=== PATIENT | male | born 1975 | race Caucasian/White ===

== ENCOUNTER 2016-09-05 09:11 | Inpatient (IN) | payer BC ==
[~2016-09-05] VITALS: Ht 182.9 cm; Wt 123.1 kg
[2016-09-05 10:06] LABS: EOSINOPHIL (%) 1.6 % (0-5); EOSINOPHIL COUNT 0.1 K/uL (0-0.3); HEMATOCRIT 43.6 % (38.0-50.0); IMMATURE GRANULOCYTE (%) 0.3 % (0.0-0.7); INSTRUMENT ABS NEUTROPHIL CT 2.5 K/uL; LYMPHOCYTE COUNT 0.8 K/uL (1.0-2.8); MCH 34.2 PG (29.0-34.0); MCHC 35.3 G/DL (30.0-36.0); MCV 96.9 FL (86-99); MEAN PLAT.VOLUME 10.1 uM^3 (9.0-12.4); MONOCYTE (%) 10.7 % (3-12); MONOCYTE COUNT 0.4 K/uL (0-0.8); NEUTROPHIL (%) 65.1 % (45-76); NEUTROPHIL COUNT 2.5 K/uL (1.8-6.4); PLATELET COUNT 156 K/uL (156-360); RBC DIS.WIDTH-CV 13.6 % (11.8-14.6); RBC DIS.WIDTH-SD 48.7 % (39-53); WHITE BLOOD COUNT 3.8 K/uL (4.1-10.2)
[2016-09-05 10:15] LABS: CHLORIDE 102 mEq/L (99-109); SODIUM 137 mEq/L (136-147)
[2016-09-05 10:17] LABS: GLUCOSE 137 mg/dL (70-99)
[2016-09-05 10:18] LABS: ANION GAP 15 MEQ/L (2-14)
[2016-09-05 10:19] LABS: TOTAL BILIRUBIN 0.8 mg/dL (0.0-1.0)
[2016-09-05 10:20] LABS: ALKALINE PHOSPHATASE 126 IU/L (3-129)
[2016-09-05 10:22] LABS: UREA NITROGEN (BUN) 6 mg/dL (9-23)
[2016-09-05 10:24] LABS: LIPASE 1048 U/L (1.0-51.0)
[2016-09-05 10:27] LABS: GFR ESTIMATE (CALCULATED) > 59 mL/min/
[2016-09-05] MEDS ORDERED: ALPRAZOLAM0.25 M2 PO (14:23)
[2016-09-05] MEDS ORDERED: PRISTIQ50 MG PO (14:24)
[2016-09-05] MEDS ORDERED: MAGNESIUM250 MG PO (14:29)
[2016-09-05] MEDS ORDERED: ZINC SULFATE220 MG PO (14:29)
[2016-09-05] MEDS ORDERED: COMBIGAN O20 DROP/5 RIGHT EYE (14:35)
[2016-09-05] MEDS ORDERED: LATANOPROST2.5 ML RIGHT EYE (14:35)
[2016-09-05 16:36] LABS: MAGNESIUM 1.8 mg/dL (1.3-2.7)
[2016-09-06] VITALS (15 sets, daily range): BP systolic 74–117; BP diastolic 42–81
[2016-09-06 09:50] LABS: HBSG INDEX 0.19
[2016-09-06 09:51] LABS: ANTI-HEPATITIS A VIRUS (IGM) Nonreactive; HAV INDEX 0.15
[2016-09-06 09:52] LABS: ANTI-HEPATITIS B CORE (IGM) Nonreactive; HBC IgM INDEX 0.07
[2016-09-06 12:02] LABS: ALKALINE PHOSPHATASE 121 IU/L (3-129); AMYLASE 162 IU/L (1-118); ANION GAP 19 MEQ/L (2-14); CHLORIDE 99 MEQ/L (99-109); FERRITIN > 1500 NG/ML (22-322); GAMMA-GT 1659 IU/L (4-73); GLUCOSE 158 mg/dL (70-99); HDL CHOLESTEROL 20 MG/DL (Desirable>=40); IRON 32 MCG/DL (35-150); LIPASE 2095 U/L (1.0-51.0); NON-HDL CHOLESTEROL 298 mg/dL (Desirable<160); POTASSIUM 4.8 MEQ/L (3.7-5.4); SAMPLE HEMOLYSIS CHECK 0; SAMPLE ICTERIC CHECK 0; SAMPLE LIPEMIA CHECK 0; SODIUM 136 MEQ/L (136-147); TOTAL BILIRUBIN 1.6 MG/DL (0.0-1.0); TOTAL CHOLESTEROL 318 mg/dL (Desirable<200); TRIGLYCERIDES 565 MG/DL (Normal: <150); UREA NITROGEN (BUN) 10 mg/dL (9-23)
[2016-09-06 12:04] LABS: GFR ESTIMATE (CALCULATED) 26 mL/min/
[2016-09-06 13:44] LABS: TROP-I INTERPRETATION NEGATIVE; TROPONIN-I 0.02 ng/mL (0.0-0.30)
[2016-09-06 15:43] LABS: HEMATOCRIT 48.4 % (38.0-50.0); MCHC 34.7 G/DL (30.0-36.0); PLATELET COUNT 127 K/uL (156-360); RBC DIS.WIDTH-CV 14.8 % (11.8-14.6); RBC DIS.WIDTH-SD 57.3 % (39-53); RED BLOOD COUNT 4.67 M/uL (4.00-5.50)
[2016-09-06 15:51] LABS: MCV 103.6 FL (86-99); WHITE BLOOD COUNT 14.5 K/uL (4.1-10.2)
[2016-09-06 15:59] LABS: ANION GAP 21 MEQ/L (2-14); CHLORIDE 100 MEQ/L (99-109); DIRECT BILIRUBIN 0.3 mg/dL (0.0-0.3); POTASSIUM 4.7 MEQ/L (3.7-5.4); SAMPLE HEMOLYSIS CHECK 1; SAMPLE ICTERIC CHECK 0; SAMPLE LIPEMIA CHECK 0; SODIUM 131 MEQ/L (136-147); TOTAL BILIRUBIN 1.6 MG/DL (0.0-1.0); UREA NITROGEN (BUN) 18 mg/dL (9-23)
[2016-09-06 16:00] LABS: ALKALINE PHOSPHATASE 78 IU/L (3-129); GFR ESTIMATE (CALCULATED) 15 mL/min/; GLUCOSE 267 mg/dL (70-99)
[2016-09-06 16:04] LABS: LIPASE 2036 U/L (1.0-51.0)
[2016-09-06 16:52] LABS: CARBOXY HGB 2.3 % (0-5); METHEMOGLOBIN 1.6 % (0-1.5); PCO2 < 19 mm Hg (35-45); PO2 76 mm Hg (80-100)
[2016-09-06 16:53] LABS: COMMENTS - BLOOD GASES A+C+; FI02 21 %; SITE LR; pH 7.25 (7.35-7.45)
[2016-09-06 17:16] LABS: METH RESISTANT S AUREUS PCR NEGATIVE (NEGATIVE); PROBE CHECK PASS; SPECIMEN PROCESSING CONTROL PASS
[2016-09-06 18:24] LABS: POINT-OF-CARE METER ID UU13113803
[2016-09-06 21:48] LABS: ANION GAP 21 MEQ/L (2-14); CHLORIDE 100 MEQ/L (99-109); GFR ESTIMATE (CALCULATED) 15 mL/min/; GLUCOSE 213 mg/dL (70-99); POTASSIUM 5.2 MEQ/L (3.7-5.4); SAMPLE HEMOLYSIS CHECK 2; SAMPLE ICTERIC CHECK 0; SAMPLE LIPEMIA CHECK 0; SODIUM 131 MEQ/L (136-147); UREA NITROGEN (BUN) 21 mg/dL (9-23)
[2016-09-07] VITALS (12 sets, daily range): BP systolic 68–139; BP diastolic 46–80
[2016-09-07 02:04] LABS: ADD MIUA? YES; BILIRUBIN NEGATIVE; BLOOD LARGE; COLOR AMBER ((YELLOW)); GLUCOSE (STRIP) 50; KETONES NEGATIVE; LEUKOCYTES NEGATIVE; NITRITE NEGATIVE; PROTEIN (STRIP) 100; SPECIFIC GRAVITY 1.027 (1.000-1.030); UROBILINOGEN 0.2 MG/DL (0.2-1.0)
[2016-09-07 02:14] LABS: BACTERIA RARE /HPF; EPITHELIAL CELLS NONE SEEN /HPF; GRANULAR CASTS 0-5 /LPF; MUCUS TRACE /LPF; UCUL ADDED? NO; WHITE BLOOD CELLS 0-5 /HPF (0-5)
[2016-09-07 06:00] LABS: BASE EXCESS -2.7 mEq/L (-3 to +3); BICARBONATE 20.4 mEq/L (22-26); CARBOXY HGB 1.8 % (0-5); COMMENTS - BLOOD GASES C+; DEVICE 980; FI02 100 %; MECHANICAL RATE 14 resp/min; METHEMOGLOBIN 1.8 % (0-1.5); MODE AC; PCO2 30 mm Hg (35-45); PEEP 5 CM/H20; PO2 305 mm Hg (80-100); SITE A LINE; TIDAL VOLUME 500 ML; TOTAL RESP RATE 14 resp/min; pH 7.44 (7.35-7.45)
[2016-09-07 08:05] LABS: HEMATOCRIT 37.3 % (38.0-50.0); MCH 34.1 PG (29.0-34.0); MCV 100.3 FL (86-99); PLATELET COUNT 113 K/uL (156-360); RBC DIS.WIDTH-SD 51.8 % (39-53); RED BLOOD COUNT 3.72 M/uL (4.00-5.50); WHITE BLOOD COUNT 10.7 K/uL (4.1-10.2)
[2016-09-07 08:37] LABS: ANION GAP 19 MEQ/L (2-14); CHLORIDE 96 MEQ/L (99-109); DIRECT BILIRUBIN 0.7 mg/dL (0.0-0.3); GFR ESTIMATE (CALCULATED) 14 mL/min/; GLUCOSE 263 mg/dL (70-99); LIPASE 694 U/L (1.0-51.0); POTASSIUM 4.3 MEQ/L (3.7-5.4); SAMPLE HEMOLYSIS CHECK 0; SAMPLE ICTERIC CHECK 0; SAMPLE LIPEMIA CHECK 0; SODIUM 134 MEQ/L (136-147); TOTAL BILIRUBIN 1.5 MG/DL (0.0-1.0); UREA NITROGEN (BUN) 26 mg/dL (9-23)
[2016-09-07 08:44] LABS: ALKALINE PHOSPHATASE 46 IU/L (3-129); MAGNESIUM 1.4 mg/dl (1.3-2.7)
[2016-09-07 09:23] LABS: INTER. NORMALIZED RATIO 1.2; PTT 35.9 (25-32)
[2016-09-07 09:52] LABS: ABS NEUTROPHIL COUNT 7.3; ANISOCYTOSIS 3+; EOSINOPHIL ABS CT 0; INSTRUMENT ABS NEUTROPHIL CT 8.1 K/uL; LYMPHOCYTES 6.2 % (15.0-45.0); MACROCYTES 3+; METAMYELOCYTES 10.6 %; MYELOCYTES 0.9 %; PLAT.SUFFICIENCY DECREASED; SEG.NEUTROPHILS 30.1 % (46.0-76.0); SPHEROCYTES 1+; STOMATOCYTES 1+; TARGET CELLS 1+
[2016-09-07 09:59] LABS: CREATINE KINASE 1198 IU/L (1-294)
[2016-09-07 10:14] LABS: UR CREATININE CONCENTRATION 236.9 MG/DL
[2016-09-07 12:19] LABS: PLATELET COUNT 113 K/uL (156-360)
[2016-09-07 12:36] LABS: CHLORIDE 100 mEq/L (99-109); POTASSIUM 4.3 mEq/L (3.7-5.4); SODIUM 134 mEq/L (136-147)
[2016-09-07 12:38] LABS: GLUCOSE 229 mg/dL (70-99)
[2016-09-07 12:39] LABS: ANION GAP 17 MEQ/L (2-14); MAGNESIUM 1.3 mg/dL (1.3-2.7)
[2016-09-07 12:42] LABS: GFR ESTIMATE (CALCULATED) 13 mL/min/
[2016-09-07 12:43] LABS: UREA NITROGEN (BUN) 27 mg/dL (9-23)
[2016-09-07 12:46] LABS: HEMATOCRIT 38.2 % (38.0-50.0); MCH 34.8 PG (29.0-34.0); MCHC 34.8 G/DL (30.0-36.0); RBC DIS.WIDTH-CV 14.1 % (11.8-14.6); RBC DIS.WIDTH-SD 51.8 % (39-53); RED BLOOD COUNT 3.82 M/uL (4.00-5.50); WHITE BLOOD COUNT 11.4 K/uL (4.1-10.2)
[2016-09-07 13:20] LABS: ABS NEUTROPHIL COUNT 10.3; ANISOCYTOSIS 2+; BAND NEUTROPHILS 41.4 % (0-8.0); EOSINOPHIL ABS CT 0; LYMPHOCYTES 4.5 % (15.0-45.0); MACROCYTES 2+; MYELOCYTES 2.7 %; PLAT.SUFFICIENCY DECREASED; SEG.NEUTROPHILS 48.7 % (46.0-76.0); SMUDGE CELLS 36.9
[2016-09-07 18:37] LABS: CHLORIDE 105 mEq/L (99-109); POTASSIUM 4.1 mEq/L (3.7-5.4); SODIUM 136 mEq/L (136-147)
[2016-09-07 18:39] LABS: GLUCOSE 153 mg/dL (70-99)
[2016-09-07 18:41] LABS: ANION GAP 15 MEQ/L (2-14)
[2016-09-07 18:43] LABS: GFR ESTIMATE (CALCULATED) 15 mL/min/
[2016-09-07 18:44] LABS: UREA NITROGEN (BUN) 22 mg/dL (9-23)
[2016-09-07 18:49] LABS: MAGNESIUM 2.3 mg/dL (1.3-2.7)
[2016-09-07 20:07] LABS: ABS NEUTROPHIL COUNT 6.6; ANISOCYTOSIS 2+; BAND NEUTROPHILS 37.3 % (0-8.0); BURR CELLS 2+; EOSINOPHIL ABS CT 0.1; EOSINOPHILS 0.9 % (0-5.0); HEMATOCRIT 34.3 % (38.0-50.0); INSTRUMENT ABS NEUTROPHIL CT 8.2 K/uL; LYMPHOCYTES 11.8 % (15.0-45.0); MACROCYTES 2+; MCH 35.2 PG (29.0-34.0); MCHC 35.9 G/DL (30.0-36.0); MCV 98.3 FL (86-99); MEAN PLAT.VOLUME 11.8 uM^3 (9.0-12.4); PLATELET COUNT 112 K/uL (156-360); RBC DIS.WIDTH-CV 14.2 % (11.8-14.6); RBC DIS.WIDTH-SD 51.6 % (39-53); RED BLOOD COUNT 3.49 M/uL (4.00-5.50); TARGET CELLS 1+
[2016-09-07 21:11] LABS: SEG.NEUTROPHILS 28.2 % (46.0-76.0)
[2016-09-07 23:46] LABS: POINT-OF-CARE METER ID UU13113803; POINT-OF-CARE USER ID LABHNS84
[2016-09-08 00:47] LABS: C DIFF TOXIN NEGATIVE (NEGATIVE)
[2016-09-08 01:07] LABS: PROBE CHECK PASS; SPECIMEN PROCESSING CONTROL PASS
[2016-09-08 01:07] LABS: CHLORIDE 107 mEq/L (99-109); SODIUM 139 mEq/L (136-147)
[2016-09-08 01:09] LABS: GLUCOSE 137 mg/dL (70-99)
[2016-09-08 01:11] LABS: ANION GAP 15 MEQ/L (2-14)
[2016-09-08 01:13] LABS: GFR ESTIMATE (CALCULATED) 20 mL/min/
[2016-09-08 01:14] LABS: UREA NITROGEN (BUN) 20 mg/dL (9-23)
[2016-09-08 02:16] LABS: ABS NEUTROPHIL COUNT 5.5; ANISOCYTOSIS 2+; EOSINOPHIL ABS CT 0.1; EOSINOPHILS 0.9 % (0-5.0); HEMATOCRIT 33.1 % (38.0-50.0); INSTRUMENT ABS NEUTROPHIL CT 7.2 K/uL; LYMPHOCYTES 11.9 % (15.0-45.0); MACROCYTES 2+; MCH 34.8 PG (29.0-34.0); MCV 99.4 FL (86-99); MEAN PLAT.VOLUME 11.9 uM^3 (9.0-12.4); METAMYELOCYTES 0.9 %; MYELOCYTES 2.8 %; PLAT.SUFFICIENCY DECREASED; PLATELET COUNT 82 K/uL (156-360); RBC DIS.WIDTH-CV 14.2 % (11.8-14.6); RBC DIS.WIDTH-SD 51.8 % (39-53); RED BLOOD COUNT 3.33 M/uL (4.00-5.50); WHITE BLOOD COUNT 8.4 K/uL (4.1-10.2)
[2016-09-08 05:35] LABS: POINT-OF-CARE METER ID UU14162636; POINT-OF-CARE USER ID LABHNS84
[2016-09-08 10:19] LABS: HEMATOCRIT 31.6 % (38.0-50.0); MCH 35.9 PG (29.0-34.0); MCHC 35.4 G/DL (30.0-36.0); MCV 101.3 FL (86-99); MEAN PLAT.VOLUME 12.4 uM^3 (9.0-12.4); PLATELET COUNT 88 K/uL (156-360); RBC DIS.WIDTH-CV 14.6 % (11.8-14.6); RBC DIS.WIDTH-SD 54.7 % (39-53); RED BLOOD COUNT 3.12 M/uL (4.00-5.50); WHITE BLOOD COUNT 8.5 K/uL (4.1-10.2)
[2016-09-08 10:41] LABS: ANION GAP 16 MEQ/L (2-14); CHLORIDE 105 MEQ/L (99-109); GFR ESTIMATE (CALCULATED) 24 mL/min/; GLUCOSE 116 mg/dL (70-99); POTASSIUM 4.3 MEQ/L (3.7-5.4); SAMPLE HEMOLYSIS CHECK 2; SAMPLE ICTERIC CHECK 0; SAMPLE LIPEMIA CHECK 0; SODIUM 137 MEQ/L (136-147); UREA NITROGEN (BUN) 17 mg/dL (9-23)
[2016-09-08 10:57] LABS: ABS NEUTROPHIL COUNT 7.2; ANISOCYTOSIS 2+; BAND NEUTROPHILS 35.7 % (0-8.0); EOSINOPHIL ABS CT 0.2; EOSINOPHILS 1.8 % (0-5.0); HEMATOLOGY COMMENT 1 SN; INSTRUMENT ABS NEUTROPHIL CT 7.2 K/uL; LYMPHOCYTES 5.3 % (15.0-45.0); MACROCYTES 2+; METAMYELOCYTES 2.7 %; PLAT.SUFFICIENCY DECREASED; POIKILOCYTOSIS 1+; SEG.NEUTROPHILS 49.1 % (46.0-76.0); SPHEROCYTES 1+; TARGET CELLS 1+; TEAR DROP CELLS 1+; TOX.VACUOLIZATION 2+
[2016-09-08 11:00] VITALS: BP 87/54
[2016-09-08 14:05] LABS: HEMATOCRIT 32.7 % (38.0-50.0); MCH 35.3 PG (29.0-34.0); MCHC 34.6 G/DL (30.0-36.0); MCV 102.2 FL (86-99); PLATELET COUNT 82 K/uL (156-360); RBC DIS.WIDTH-CV 14.7 % (11.8-14.6); RBC DIS.WIDTH-SD 55.2 % (39-53); WHITE BLOOD COUNT 8.2 K/uL (4.1-10.2)
[2016-09-08 14:12] LABS: ABS NEUTROPHIL COUNT 6.9; ANISOCYTOSIS 3+; ATYPICAL LYMPHOCYTE 0.9 %; BAND NEUTROPHILS 29.8 % (0-8.0); BASOPHILS 0.9 %; EOSINOPHIL ABS CT 0; INSTRUMENT ABS NEUTROPHIL CT 6.7 K/uL; MACROCYTES 3+; METAMYELOCYTES 3.5 %; NUCLEATED RBC'S 0.9; PLAT.SUFFICIENCY DECREASED; POIKILOCYTOSIS 1+; SEG.NEUTROPHILS 54.4 % (46.0-76.0); TARGET CELLS 1+
[2016-09-08 14:14] LABS: ANION GAP 17 MEQ/L (2-14); CHLORIDE 104 MEQ/L (99-109); GFR ESTIMATE (CALCULATED) 26 mL/min/; GLUCOSE 111 mg/dL (70-99); MAGNESIUM 2.1 mg/dl (1.3-2.7); POTASSIUM 4.4 MEQ/L (3.7-5.4); SAMPLE HEMOLYSIS CHECK 1; SAMPLE ICTERIC CHECK 0; SAMPLE LIPEMIA CHECK 0; SODIUM 137 MEQ/L (136-147); UREA NITROGEN (BUN) 16 mg/dL (9-23)
[2016-09-08 17:50] LABS: POINT-OF-CARE METER ID UU14174217
[2016-09-08 18:54] LABS: HEMATOCRIT 31.5 % (38.0-50.0); MCH 35.3 PG (29.0-34.0); MCHC 34.6 G/DL (30.0-36.0); MCV 101.9 FL (86-99); NRBC (%) 0.3 /100 WBC (0-0); PLATELET COUNT 94 K/uL (156-360); RBC DIS.WIDTH-CV 14.9 % (11.8-14.6); RBC DIS.WIDTH-SD 55.7 % (39-53); RED BLOOD COUNT 3.09 M/uL (4.00-5.50); WHITE BLOOD COUNT 7.5 K/uL (4.1-10.2)
[2016-09-08 18:59] LABS: CHLORIDE 106 mEq/L (99-109); POTASSIUM 4.6 mEq/L (3.7-5.4); SODIUM 137 mEq/L (136-147)
[2016-09-08 19:00] LABS: MAGNESIUM 2.3 mg/dL (1.3-2.7)
[2016-09-08 19:02] LABS: GLUCOSE 122 mg/dL (70-99)
[2016-09-08 19:03] LABS: ANION GAP 17 MEQ/L (2-14)
[2016-09-08 19:05] LABS: GFR ESTIMATE (CALCULATED) 28 mL/min/
[2016-09-08 19:06] LABS: UREA NITROGEN (BUN) 14 mg/dL (9-23)
[2016-09-08 20:04] LABS: ABS NEUTROPHIL COUNT 5.4; ANISOCYTOSIS 3+; BAND NEUTROPHILS 21.9 % (0-8.0); EOSINOPHIL ABS CT 0; HYPOCHROMASIA 1+; INSTRUMENT ABS NEUTROPHIL CT 5.7 K/uL; MACROCYTES 3+; MYELOCYTES 4.4 %; PLAT.SUFFICIENCY DECREASED; POLYCHROMASIA 1+; TARGET CELLS 1+; TEAR DROP CELLS 1+; TOX.VACUOLIZATION 1+
[2016-09-09 01:40] LABS: POINT-OF-CARE METER ID UU13113803; POINT-OF-CARE USER ID ENVSME70
[2016-09-09 01:50] LABS: HEMATOCRIT 29.9 % (38.0-50.0); MCH 34.1 PG (29.0-34.0); MCHC 33.4 G/DL (30.0-36.0); MEAN PLAT.VOLUME 12.2 uM^3 (9.0-12.4); NRBC (%) 0.5 /100 WBC (0-0); PLATELET COUNT 86 K/uL (156-360); RBC DIS.WIDTH-CV 14.6 % (11.8-14.6); RBC DIS.WIDTH-SD 55.4 % (39-53); RED BLOOD COUNT 2.93 M/uL (4.00-5.50); WHITE BLOOD COUNT 7.3 K/uL (4.1-10.2)
[2016-09-09 01:58] LABS: CHLORIDE 104 mEq/L (99-109)
[2016-09-09 01:59] LABS: SODIUM 135 mEq/L (136-147)
[2016-09-09 02:01] LABS: GLUCOSE 151 mg/dL (70-99)
[2016-09-09 02:02] LABS: ANION GAP 14 MEQ/L (2-14)
[2016-09-09 02:05] LABS: GFR ESTIMATE (CALCULATED) 31 mL/min/
[2016-09-09 02:06] LABS: UREA NITROGEN (BUN) 14 mg/dL (9-23)
[2016-09-09 02:57] LABS: ABS NEUTROPHIL COUNT 5.2; ANISOCYTOSIS 3+; ATYPICAL LYMPHOCYTE 0.9 %; BAND NEUTROPHILS 20.2 % (0-8.0); EOSINOPHIL ABS CT 0.2; EOSINOPHILS 2.6 % (0-5.0); HYPOCHROMASIA 1+; LYMPHOCYTES 10.5 % (15.0-45.0); MACROCYTES 3+; METAMYELOCYTES 1.8 %; MYELOCYTES 1.7 %; NUCLEATED RBC'S 3.5; PLAT.SUFFICIENCY DECREASED; POLYCHROMASIA 1+; SEG.NEUTROPHILS 50.9 % (46.0-76.0); TEAR DROP CELLS 1+; TOX.VACUOLIZATION 1+
[2016-09-09 05:08] LABS: CHLORIDE 105 mEq/L (99-109); POTASSIUM 4.2 mEq/L (3.7-5.4); SODIUM 135 mEq/L (136-147)
[2016-09-09 05:09] LABS: MAGNESIUM 2.1 mg/dL (1.3-2.7)
[2016-09-09 05:11] LABS: GLUCOSE 144 mg/dL (70-99)
[2016-09-09 05:12] LABS: ANION GAP 13 MEQ/L (2-14)
[2016-09-09 05:15] LABS: ALKALINE PHOSPHATASE 50 IU/L (3-129); GFR ESTIMATE (CALCULATED) 32 mL/min/; TOTAL BILIRUBIN 2.1 mg/dL (0.0-1.0)
[2016-09-09 05:16] LABS: DIRECT BILIRUBIN 1.3 mg/dL (0.0-0.3); UREA NITROGEN (BUN) 14 mg/dL (9-23)
[2016-09-09 05:49] LABS: TRIGLYCERIDES 614 MG/DL (Normal: <150)
[2016-09-09 06:38] LABS: HEMATOCRIT 28.6 % (38.0-50.0); MCHC 34.6 G/DL (30.0-36.0); MCV 101.1 FL (86-99); NRBC (%) 0.7 /100 WBC (0-0); RBC DIS.WIDTH-CV 14.7 % (11.8-14.6); RBC DIS.WIDTH-SD 55.1 % (39-53); RED BLOOD COUNT 2.83 M/uL (4.00-5.50); WHITE BLOOD COUNT 7.3 K/uL (4.1-10.2)
[2016-09-09 06:46] LABS: ATYPICAL LYMPHOCYTE 0.9 %; EOSINOPHIL ABS CT 0.3; EOSINOPHILS 4.3 % (0-5.0); INSTRUMENT ABS NEUTROPHIL CT 5.2 K/uL; LYMPHOCYTES 9.5 % (15.0-45.0); METAMYELOCYTES 1.7 %; NUCLEATED RBC'S 0.9
[2016-09-09 09:00] VITALS: BP 109/68
[2016-09-09 11:58] LABS: POINT-OF-CARE METER ID UU13113803
[2016-09-09 12:55] LABS: HEMATOCRIT 28.8 % (38.0-50.0); MCH 35.7 PG (29.0-34.0); MCHC 34.7 G/DL (30.0-36.0); MCV 102.9 FL (86-99); MEAN PLAT.VOLUME 12.4 uM^3 (9.0-12.4); NRBC (%) 1.5 /100 WBC (0-0); PLATELET COUNT 88 K/uL (156-360); RBC DIS.WIDTH-CV 14.8 % (11.8-14.6); RBC DIS.WIDTH-SD 55.7 % (39-53); WHITE BLOOD COUNT 9.9 K/uL (4.1-10.2)
[2016-09-09 13:22] LABS: ABS NEUTROPHIL COUNT 7.1; ANISOCYTOSIS 3+; BURR CELLS 1+; EOSINOPHIL ABS CT 0.1; EOSINOPHILS 0.9 % (0-5.0); HEMATOLOGY COMMENT 1 SN; INSTRUMENT ABS NEUTROPHIL CT 6.8 K/uL; LYMPHOCYTES 6.1 % (15.0-45.0); MACROCYTES 2+; METAMYELOCYTES 5.2 %; MYELOCYTES 2.6 %; NUCLEATED RBC'S 3.5; PLAT.SUFFICIENCY DECREASED; POIKILOCYTOSIS 1+; POLYCHROMASIA 1+; TARGET CELLS 1+
[2016-09-09 13:24] LABS: BAND NEUTROPHILS 45.2 % (0-8.0); SEG.NEUTROPHILS 26.1 % (46.0-76.0)
[2016-09-09 14:18] LABS: CHLORIDE 103 mEq/L (99-109); POTASSIUM 4.1 mEq/L (3.7-5.4); SODIUM 134 mEq/L (136-147)
[2016-09-09 14:19] LABS: AMYLASE 47 IU/L (1-118)
[2016-09-09 14:20] LABS: GLUCOSE 129 mg/dL (70-99)
[2016-09-09 14:22] LABS: ANION GAP 14 MEQ/L (2-14)
[2016-09-09 14:23] LABS: TOTAL BILIRUBIN 2.6 mg/dL (0.0-1.0)
[2016-09-09 14:24] LABS: ALKALINE PHOSPHATASE 58 IU/L (3-129); GFR ESTIMATE (CALCULATED) 32 mL/min/
[2016-09-09 14:25] LABS: UREA NITROGEN (BUN) 13 mg/dL (9-23)
[2016-09-09 14:28] LABS: LIPASE 180 U/L (1.0-51.0)
[2016-09-09 18:05] LABS: POINT-OF-CARE METER ID UU14174217
[2016-09-09 18:40] LABS: HEMATOCRIT 24.5 % (38.0-50.0); MCH 34.6 PG (29.0-34.0); MCHC 33.9 G/DL (30.0-36.0); MCV 102.1 FL (86-99); MEAN PLAT.VOLUME 11.7 uM^3 (9.0-12.4); NRBC (%) 2.6 /100 WBC (0-0); PLATELET COUNT 79 K/uL (156-360); RBC DIS.WIDTH-CV 14.8 % (11.8-14.6); RBC DIS.WIDTH-SD 55.2 % (39-53); WHITE BLOOD COUNT 9.6 K/uL (4.1-10.2)
[2016-09-09 18:43] LABS: CHLORIDE 103 mEq/L (99-109); POTASSIUM 3.6 mEq/L (3.7-5.4); SODIUM 134 mEq/L (136-147)
[2016-09-09 18:44] LABS: MAGNESIUM 2.2 mg/dL (1.3-2.7)
[2016-09-09 18:45] LABS: GLUCOSE 126 mg/dL (70-99)
[2016-09-09 18:47] LABS: ANION GAP 12 MEQ/L (2-14)
[2016-09-09 18:49] LABS: GFR ESTIMATE (CALCULATED) 28 mL/min/
[2016-09-09 18:50] LABS: UREA NITROGEN (BUN) 14 mg/dL (9-23)
[2016-09-09 19:41] LABS: ABS NEUTROPHIL COUNT 7.2; ANISOCYTOSIS 3+; EOSINOPHIL ABS CT 0; GIANT PLATELETS 1+; INSTRUMENT ABS NEUTROPHIL CT 6.1 K/uL; LYMPHOCYTES 6.2 % (15.0-45.0); MACROCYTES 3+; MYELOCYTES 4.5 %; NUCLEATED RBC'S 4.5; PLAT.SUFFICIENCY DECREASED; SMUDGE CELLS 1.8; TOX.VACUOLIZATION 1+; TOXIC GRANULATION 2+
[2016-09-09 19:43] LABS: BAND NEUTROPHILS 12.5 % (0-8.0); SEG.NEUTROPHILS 62.5 % (46.0-76.0)
[2016-09-10 00:04] LABS: POINT-OF-CARE METER ID UU14174217; POINT-OF-CARE USER ID LABHNS84
[2016-09-10 02:25] LABS: CHLORIDE 104 MEQ/L (99-109); GFR ESTIMATE (CALCULATED) 31 mL/min/; GLUCOSE 122 mg/dL (70-99); MAGNESIUM 2.3 mg/dl (1.3-2.7); POTASSIUM 4.3 MEQ/L (3.7-5.4); SODIUM 134 MEQ/L (136-147); UREA NITROGEN (BUN) 14 mg/dL (9-23)
[2016-09-10 02:27] LABS: HEMATOCRIT 26.3 % (38.0-50.0); MCH 34.7 PG (29.0-34.0); MCHC 33.1 G/DL (30.0-36.0); MCV 104.8 FL (86-99); NRBC (%) 2.7 /100 WBC (0-0); RBC DIS.WIDTH-CV 15.5 % (11.8-14.6); RBC DIS.WIDTH-SD 58.7 % (39-53); RED BLOOD COUNT 2.51 M/uL (4.00-5.50); WHITE BLOOD COUNT 11.1 K/uL (4.1-10.2)
[2016-09-10 02:28] LABS: PLATELET COUNT 110 K/uL (156-360)
[2016-09-10 05:52] LABS: BICARBONATE 21.3 mEq/L (22-26); METHEMOGLOBIN 1.8 % (0-1.5)
[2016-09-10 05:53] LABS: MECHANICAL RATE 12 resp/min; MODE ACVC; PCO2 57 mm Hg (35-45); PEEP 8 CM/H20; PO2 72 mm Hg (80-100); TIDAL VOLUME 500 ML; TOTAL RESP RATE 12 resp/min; pH 7.18 (7.35-7.45)
[2016-09-10 05:54] LABS: DEVICE PB980; FI02 40 %; SITE A-LINE
[2016-09-10 06:12] LABS: HEMATOCRIT 26.6 % (38.0-50.0); MCH 35.6 PG (29.0-34.0); MCHC 33.5 G/DL (30.0-36.0); MCV 106.4 FL (86-99); NRBC (%) 3.3 /100 WBC (0-0); RBC DIS.WIDTH-CV 15.5 % (11.8-14.6); RBC DIS.WIDTH-SD 59.6 % (39-53); WHITE BLOOD COUNT 11.7 K/uL (4.1-10.2)
[2016-09-10 06:45] LABS: ANION GAP 10 MEQ/L (2-14); CHLORIDE 102 MEQ/L (99-109); GFR ESTIMATE (CALCULATED) 32 mL/min/; GLUCOSE 111 mg/dL (70-99); MAGNESIUM 2.2 mg/dl (1.3-2.7); POTASSIUM 4.2 MEQ/L (3.7-5.4); SAMPLE HEMOLYSIS CHECK 0; SAMPLE ICTERIC CHECK 1; SAMPLE LIPEMIA CHECK 0; SODIUM 134 MEQ/L (136-147); UREA NITROGEN (BUN) 13 mg/dL (9-23)
[2016-09-10 07:13] LABS: ABS NEUTROPHIL COUNT 8.4; ANISOCYTOSIS 3+; BAND NEUTROPHILS 10.7 % (0-8.0); EOSINOPHIL ABS CT 0.3; EOSINOPHILS 2.7 % (0-5.0); INSTRUMENT ABS NEUTROPHIL CT 6.8 K/uL; MACROCYTES 3+; MEAN PLAT.VOLUME 12.3 uM^3 (9.0-12.4); METAMYELOCYTES 3.6 %; MYELOCYTES 3.6 %; NUCLEATED RBC'S 5.4; PLAT.SUFFICIENCY DECREASED; POLYCHROMASIA 1+; SEG.NEUTROPHILS 60.7 % (46.0-76.0); TOX.VACUOLIZATION 2+
[2016-09-10 08:48] LABS: BASE EXCESS -5.1 mEq/L (-3 to +3); BICARBONATE 21.5 mEq/L (22-26); CARBOXY HGB 4.2 % (0-5); METHEMOGLOBIN 2.1 % (0-1.5); PCO2 48 mm Hg (35-45); PO2 62 mm Hg (80-100)
[2016-09-10 08:49] LABS: COMMENTS - BLOOD GASES C+; DEVICE VENT; FI02 40 %; MECHANICAL RATE 16 resp/min; MODE AC; PEEP 8 CM/H20; SITE LR ALINE; TIDAL VOLUME 500 ML; TOTAL RESP RATE 16 resp/min; pH 7.26 (7.35-7.45)
[2016-09-10 12:26] LABS: HEMATOCRIT 27.3 % (38.0-50.0); MCH 36.7 PG (29.0-34.0); MCHC 34.8 G/DL (30.0-36.0); MCV 105.4 FL (86-99); MEAN PLAT.VOLUME 11.9 uM^3 (9.0-12.4); NRBC (%) 4.1 /100 WBC (0-0); PLATELET COUNT 87 K/uL (156-360); RBC DIS.WIDTH-CV 15.5 % (11.8-14.6); RBC DIS.WIDTH-SD 59.5 % (39-53); RED BLOOD COUNT 2.59 M/uL (4.00-5.50)
[2016-09-10 12:27] LABS: WHITE BLOOD COUNT 16.2 K/uL (4.1-10.2)
[2016-09-10 12:41] LABS: POINT-OF-CARE METER ID UU14162636
[2016-09-10 13:04] LABS: ANION GAP 13 MEQ/L (2-14); CHLORIDE 102 MEQ/L (99-109); GFR ESTIMATE (CALCULATED) 34 mL/min/; GLUCOSE 97 mg/dL (70-99); MAGNESIUM 2.3 mg/dl (1.3-2.7); POTASSIUM 4.4 MEQ/L (3.7-5.4); SAMPLE HEMOLYSIS CHECK 1; SAMPLE ICTERIC CHECK 1; SAMPLE LIPEMIA CHECK 0; SODIUM 135 MEQ/L (136-147); UREA NITROGEN (BUN) 12 mg/dL (9-23)
[2016-09-10 13:21] LABS: ABS NEUTROPHIL COUNT 10.3; ANISOCYTOSIS 3+; ATYPICAL LYMPHOCYTE 0.9 %; EOSINOPHIL ABS CT 0.1; EOSINOPHILS 0.9 % (0-5.0); INSTRUMENT ABS NEUTROPHIL CT 10.1 K/uL; LYMPHOCYTES 5.2 % (15.0-45.0); MACROCYTES 3+; METAMYELOCYTES 7.8 %; MYELOCYTES 12.2 %; NUCLEATED RBC'S 5.2; PLAT.SUFFICIENCY DECREASED; SEG.NEUTROPHILS 50.4 % (46.0-76.0); TARGET CELLS 1+; TEAR DROP CELLS 1+
[2016-09-10 18:37] LABS: HEMATOCRIT 26.5 % (38.0-50.0); MCH 35.2 PG (29.0-34.0); MCHC 33.6 G/DL (30.0-36.0); MCV 104.7 FL (86-99); MEAN PLAT.VOLUME 12.3 uM^3 (9.0-12.4); NRBC (%) 3.8 /100 WBC (0-0); PLATELET COUNT 101 K/uL (156-360); RBC DIS.WIDTH-CV 15.4 % (11.8-14.6); RBC DIS.WIDTH-SD 58.4 % (39-53); RED BLOOD COUNT 2.53 M/uL (4.00-5.50); WHITE BLOOD COUNT 20.1 K/uL (4.1-10.2)
[2016-09-10 18:37] LABS: POINT-OF-CARE METER ID UU14162636
[2016-09-10 18:40] LABS: ANION GAP 13 MEQ/L (2-14); CHLORIDE 103 MEQ/L (99-109); GFR ESTIMATE (CALCULATED) 38 mL/min/; GLUCOSE 102 mg/dL (70-99); MAGNESIUM 2.2 mg/dl (1.3-2.7); POTASSIUM 4.3 MEQ/L (3.7-5.4); SAMPLE HEMOLYSIS CHECK 0; SAMPLE ICTERIC CHECK 1; SAMPLE LIPEMIA CHECK 0; SODIUM 135 MEQ/L (136-147); UREA NITROGEN (BUN) 12 mg/dL (9-23)
[2016-09-10 20:00] VITALS: BP 94/60
[2016-09-10 21:04] LABS: ABS NEUTROPHIL COUNT 13.1; ANISOCYTOSIS 1+; BAND NEUTROPHILS 23.5 % (0-8.0); EOSINOPHIL ABS CT 0; INSTRUMENT ABS NEUTROPHIL CT 12.5 K/uL; MACROCYTES 2+; METAMYELOCYTES 10.5 %; PLAT.SUFFICIENCY ADEQUATE; POLYCHROMASIA 1+; SEG.NEUTROPHILS 41.5 % (46.0-76.0); STOMATOCYTES 1+; TARGET CELLS 1+
[2016-09-11 00:27] LABS: POINT-OF-CARE METER ID UU13113731
[2016-09-11 00:54] LABS: HEMATOCRIT 25.4 % (38.0-50.0); MCH 34.9 PG (29.0-34.0); MCHC 33.1 G/DL (30.0-36.0); MCV 105.4 FL (86-99); MEAN PLAT.VOLUME 12.3 uM^3 (9.0-12.4); NRBC (%) 2.8 /100 WBC (0-0); PLATELET COUNT 98 K/uL (156-360); RBC DIS.WIDTH-CV 15.5 % (11.8-14.6); RBC DIS.WIDTH-SD 59.4 % (39-53); RED BLOOD COUNT 2.41 M/uL (4.00-5.50); WHITE BLOOD COUNT 20.2 K/uL (4.1-10.2)
[2016-09-11 01:04] LABS: CHLORIDE 107 mEq/L (99-109); SODIUM 135 mEq/L (136-147)
[2016-09-11 01:05] LABS: MAGNESIUM 2.1 mg/dL (1.3-2.7)
[2016-09-11 01:07] LABS: ANION GAP 10 MEQ/L (2-14)
[2016-09-11 01:10] LABS: GFR ESTIMATE (CALCULATED) 40 mL/min/
[2016-09-11 01:11] LABS: UREA NITROGEN (BUN) 13 mg/dL (9-23)
[2016-09-11 01:14] LABS: GLUCOSE 162 mg/dL (70-99)
[2016-09-11 04:00] VITALS: BP 81/31
[2016-09-11 05:00] VITALS: BP 81/31
[2016-09-11 06:09] LABS: POINT-OF-CARE METER ID UU13113731
[2016-09-11 07:57] LABS: ALKALINE PHOSPHATASE 64 IU/L (3-129); ANION GAP 13 MEQ/L (2-14); CHLORIDE 103 MEQ/L (99-109); DIRECT BILIRUBIN 2.5 mg/dL (0.0-0.3); GFR ESTIMATE (CALCULATED) 40 mL/min/; GLUCOSE 182 mg/dL (70-99); MAGNESIUM 2.2 mg/dl (1.3-2.7); POTASSIUM 3.8 MEQ/L (3.7-5.4); PREALBUMIN 4.6 mg/dL (10-40); SAMPLE HEMOLYSIS CHECK 0; SAMPLE ICTERIC CHECK 1; SAMPLE LIPEMIA CHECK 0; SODIUM 135 MEQ/L (136-147); TOTAL BILIRUBIN 3.5 MG/DL (0.0-1.0); TRIGLYCERIDES 432 MG/DL (Normal: <150); UREA NITROGEN (BUN) 18 mg/dL (9-23)
[2016-09-11 08:03] LABS: MCV 105.9 FL (86-99); MEAN PLAT.VOLUME 12.7 uM^3 (9.0-12.4); NRBC (%) 3.5 /100 WBC (0-0); PLATELET COUNT 108 K/uL (156-360); RBC DIS.WIDTH-CV 15.7 % (11.8-14.6); RBC DIS.WIDTH-SD 59.7 % (39-53); RED BLOOD COUNT 2.36 M/uL (4.00-5.50)
[2016-09-11 09:19] LABS: ABS NEUTROPHIL COUNT 16.6; ANISOCYTOSIS 1+; EOSINOPHIL ABS CT 0.5; HYPOCHROMASIA 2+; INSTRUMENT ABS NEUTROPHIL CT 14.1 K/uL; NUCLEATED RBC'S 5.5; PLAT.SUFFICIENCY DECREASED; SPHEROCYTES 1+; STOMATOCYTES 2+
[2016-09-11 12:19] LABS: BASE EXCESS -2.7 mEq/L (-3 to +3); BICARBONATE 20.6 mEq/L (22-26); PO2 64 mm Hg (80-100)
[2016-09-11 12:21] LABS: COMMENTS - BLOOD GASES A+C+; DEVICE PB980; FI02 40 %; MODE A/C; PCO2 31 mm Hg (35-45); SITE RR; pH 7.43 (7.35-7.45)
[2016-09-11 12:22] LABS: MECHANICAL RATE 16 resp/min; PEEP 5 CM/H20; TIDAL VOLUME 500 ML; TOTAL RESP RATE 16 resp/min
[2016-09-11 12:23] LABS: HEMATOCRIT 25.8 % (38.0-50.0); MCH 35.6 PG (29.0-34.0); MCHC 34.1 G/DL (30.0-36.0); MCV 104.5 FL (86-99); MEAN PLAT.VOLUME 12.8 uM^3 (9.0-12.4); NRBC (%) 3.5 /100 WBC (0-0); PLATELET COUNT 144 K/uL (156-360); RBC DIS.WIDTH-CV 15.6 % (11.8-14.6); RBC DIS.WIDTH-SD 59.5 % (39-53); RED BLOOD COUNT 2.47 M/uL (4.00-5.50); WHITE BLOOD COUNT 26.5 K/uL (4.1-10.2)
[2016-09-11 12:31] LABS: CHLORIDE 106 mEq/L (99-109); POTASSIUM 4.5 mEq/L (3.7-5.4); SODIUM 135 mEq/L (136-147)
[2016-09-11 12:33] LABS: GLUCOSE 202 mg/dL (70-99)
[2016-09-11 12:34] LABS: ANION GAP 12 MEQ/L (2-14)
[2016-09-11 12:36] LABS: GFR ESTIMATE (CALCULATED) 42 mL/min/
[2016-09-11 12:37] LABS: UREA NITROGEN (BUN) 20 mg/dL (9-23)
[2016-09-11 12:42] LABS: MAGNESIUM 2.5 mg/dL (1.3-2.7)
[2016-09-11 18:00] VITALS: BP 103/62
[2016-09-11 18:15] LABS: POINT-OF-CARE METER ID UU13113731
[2016-09-11 19:05] LABS: MEAN PLAT.VOLUME 12.7 uM^3 (9.0-12.4); PLATELET COUNT 143 K/uL (156-360)
[2016-09-11 19:08] LABS: HEMATOCRIT 26.7 % (38.0-50.0); MCH 35.2 PG (29.0-34.0); MCHC 33.7 G/DL (30.0-36.0); MCV 104.3 FL (86-99); NRBC (%) 4.2 /100 WBC (0-0); RBC DIS.WIDTH-CV 15.6 % (11.8-14.6); RBC DIS.WIDTH-SD 57.7 % (39-53); RED BLOOD COUNT 2.56 M/uL (4.00-5.50)
[2016-09-11 19:17] LABS: CHLORIDE 106 mEq/L (99-109); POTASSIUM 4.2 mEq/L (3.7-5.4); SODIUM 134 mEq/L (136-147)
[2016-09-11 19:18] LABS: GLUCOSE 255 mg/dL (70-99)
[2016-09-11 19:20] LABS: ANION GAP 11 MEQ/L (2-14)
[2016-09-11 19:22] LABS: GFR ESTIMATE (CALCULATED) 36 mL/min/
[2016-09-11 19:23] LABS: UREA NITROGEN (BUN) 24 mg/dL (9-23)
[2016-09-11 22:00] VITALS: BP 94/51
[2016-09-12 01:00] VITALS: BP 85/47
[2016-09-12 01:27] LABS: POINT-OF-CARE METER ID UU13113731
[2016-09-12 01:35] LABS: HEMATOCRIT 26.4 % (38.0-50.0); MCH 35.4 PG (29.0-34.0); MCHC 34.1 G/DL (30.0-36.0); MCV 103.9 FL (86-99); MEAN PLAT.VOLUME 12.6 uM^3 (9.0-12.4); NRBC (%) 4.7 /100 WBC (0-0); RBC DIS.WIDTH-CV 15.9 % (11.8-14.6); RBC DIS.WIDTH-SD 57.9 % (39-53); RED BLOOD COUNT 2.54 M/uL (4.00-5.50)
[2016-09-12 01:44] LABS: PLATELET COUNT 199 K/uL (156-360)
[2016-09-12 01:47] LABS: CHLORIDE 106 mEq/L (99-109); SODIUM 134 mEq/L (136-147)
[2016-09-12 01:48] LABS: MAGNESIUM 2.8 mg/dL (1.3-2.7)
[2016-09-12 01:49] LABS: GLUCOSE 305 mg/dL (70-99)
[2016-09-12 01:51] LABS: ANION GAP 13 MEQ/L (2-14)
[2016-09-12 01:53] LABS: GFR ESTIMATE (CALCULATED) 25 mL/min/
[2016-09-12 01:54] LABS: UREA NITROGEN (BUN) 35 mg/dL (9-23)
[2016-09-12 02:00] VITALS: BP 85/47
[2016-09-12 02:42] LABS: ABS NEUTROPHIL COUNT 26.8; BASOPHILS 0.9 %; EOSINOPHIL ABS CT 0.7; EOSINOPHILS 1.8 % (0-5.0); INSTRUMENT ABS NEUTROPHIL CT 21.7 K/uL; LYMPHOCYTES 0.9 % (15.0-45.0); METAMYELOCYTES 9.3 %; MYELOCYTES 13.9 %; NUCLEATED RBC'S 8.3
[2016-09-12 02:43] LABS: BAND NEUTROPHILS 5.6 % (0-8.0); SEG.NEUTROPHILS 64.8 % (46.0-76.0)
[2016-09-12 02:44] LABS: ANISOCYTOSIS 1+; MACROCYTES 1+; POIKILOCYTOSIS FEW; POLYCHROMASIA 1+
[2016-09-12 02:45] LABS: SPHEROCYTES FEW
[2016-09-12 07:00] VITALS: BP 112/81
[2016-09-12 07:10] LABS: MEAN PLAT.VOLUME 12.9 uM^3 (9.0-12.4); PLATELET COUNT 196 K/uL (156-360)
[2016-09-12 07:28] LABS: HEMATOCRIT 25.2 % (38.0-50.0); MCH 36.7 PG (29.0-34.0); MCHC 34.5 G/DL (30.0-36.0); MCV 106.3 FL (86-99); NRBC (%) 4.4 /100 WBC (0-0); RBC DIS.WIDTH-CV 16.2 % (11.8-14.6); RBC DIS.WIDTH-SD 60.8 % (39-53); RED BLOOD COUNT 2.37 M/uL (4.00-5.50); WHITE BLOOD COUNT 36.6 K/uL (4.1-10.2)
[2016-09-12 08:00] VITALS: BP 112/81
[2016-09-12 08:06] LABS: BAND NEUTROPHILS 14.8 % (0-8.0); EOSINOPHIL ABS CT 0; INSTRUMENT ABS NEUTROPHIL CT 20.1 K/uL; LYMPHOCYTES 4.4 % (15.0-45.0); METAMYELOCYTES 13.9 %; MYELOCYTES 4.3 %; NUCLEATED RBC'S 3.5; SEG.NEUTROPHILS 59.1 % (46.0-76.0)
[2016-09-12 10:00] VITALS: BP 98/58
[2016-09-12 10:06] LABS: AMYLASE 16 IU/L (1-118)
[2016-09-12 10:11] LABS: ALKALINE PHOSPHATASE 123 IU/L (3-129); TOTAL BILIRUBIN 4.7 mg/dL (0.0-1.0)
[2016-09-12 10:14] LABS: LIPASE 94 U/L (1.0-51.0)
[2016-09-12 12:54] LABS: PLATELET COUNT 176 K/uL (156-360)
[2016-09-12 13:00] LABS: CHLORIDE 110 mEq/L (99-109); POTASSIUM 4.7 mEq/L (3.7-5.4); SODIUM 138 mEq/L (136-147)
[2016-09-12 13:01] LABS: POINT-OF-CARE METER ID UU14174217; POINT-OF-CARE USER ID 612031313
[2016-09-12 13:01] LABS: MAGNESIUM 2.4 mg/dL (1.3-2.7)
[2016-09-12 13:03] LABS: GLUCOSE 263 mg/dL (70-99); HEMATOCRIT 26.4 % (38.0-50.0); MCH 34.9 PG (29.0-34.0); MCHC 33.3 G/DL (30.0-36.0); MCV 104.8 FL (86-99); NRBC (%) 3.8 /100 WBC (0-0); RBC DIS.WIDTH-CV 15.9 % (11.8-14.6); RBC DIS.WIDTH-SD 58.3 % (39-53); RED BLOOD COUNT 2.52 M/uL (4.00-5.50)
[2016-09-12 13:04] LABS: ANION GAP 12 MEQ/L (2-14)
[2016-09-12 13:10] LABS: WHITE BLOOD COUNT 39.9 K/uL (4.1-10.2)
[2016-09-12 13:15] LABS: GFR ESTIMATE (CALCULATED) 19 mL/min/
[2016-09-12 13:34] LABS: UREA NITROGEN (BUN) 50 mg/dL (9-23)
[2016-09-12 13:44] LABS: BASOPHIL COUNT 0.2 K/uL (0-0.1); EOSINOPHIL (%) 0.3 % (0-5); EOSINOPHIL COUNT 0.1 K/uL (0-0.3); IMMATURE GRANULOCYTE (%) 35.2 % (0.0-0.7); INSTRUMENT ABS NEUTROPHIL CT 21.8 K/uL; LYMPHOCYTE COUNT 1.8 K/uL (1.0-2.8); MONOCYTE (%) 4.7 % (3-12); MONOCYTE COUNT 1.9 K/uL (0-0.8); NEUTROPHIL (%) 54.8 % (45-76); NEUTROPHIL COUNT 21.8 K/uL (1.8-6.4)
[2016-09-12 14:18] LABS: PLAT.SUFFICIENCY ADEQUATE; PLATELET CLUMPS PRESENT - PLATELET COUNT APPEARS ADQ.
[2016-09-12 16:28] LABS: BASE EXCESS -7.7 mEq/L (-3 to +3); BICARBONATE 17.3 mEq/L (22-26); CARBOXY HGB 2.3 % (0-5); COMMENTS - BLOOD GASES +C; DEVICE PB980; METHEMOGLOBIN 2.4 % (0-1.5); PCO2 32 mm Hg (35-45); PO2 130 mm Hg (80-100); SITE A-LINE; pH 7.34 (7.35-7.45)
[2016-09-12 16:29] LABS: FI02 50 %; INSPIRATION TIME 0.8 seconds; MECHANICAL RATE 18 resp/min; MODE ACVC+; PEEP 5 CM/H20; TIDAL VOLUME 500 ML; TOTAL RESP RATE 25 resp/min
[2016-09-12 17:54] LABS: POINT-OF-CARE METER ID UU14174217; POINT-OF-CARE USER ID 612031313
[2016-09-12 18:35] LABS: MEAN PLAT.VOLUME 12.7 uM^3 (9.0-12.4); PLATELET COUNT 172 K/uL (156-360)
[2016-09-12 18:47] LABS: HEMATOCRIT 23.8 % (38.0-50.0); MCH 35.6 PG (29.0-34.0); MCHC 33.6 G/DL (30.0-36.0); MCV 105.8 FL (86-99); NRBC (%) 2.6 /100 WBC (0-0); RBC DIS.WIDTH-CV 16.3 % (11.8-14.6); RBC DIS.WIDTH-SD 60.3 % (39-53); RED BLOOD COUNT 2.25 M/uL (4.00-5.50); WHITE BLOOD COUNT 36.3 K/uL (4.1-10.2)
[2016-09-12 18:48] LABS: CHLORIDE 112 mEq/L (99-109); POTASSIUM 5.3 mEq/L (3.7-5.4); SODIUM 140 mEq/L (136-147)
[2016-09-12 18:50] LABS: GLUCOSE 221 mg/dL (70-99)
[2016-09-12 18:51] LABS: MAGNESIUM 2.9 mg/dL (1.3-2.7)
[2016-09-12 18:52] LABS: ANION GAP 15 MEQ/L (2-14)
[2016-09-12 18:54] LABS: GFR ESTIMATE (CALCULATED) 17 mL/min/
[2016-09-12 18:55] LABS: UREA NITROGEN (BUN) 53 mg/dL (9-23)
[2016-09-12 19:32] LABS: ABS NEUTROPHIL COUNT 25.4; ANISOCYTOSIS 2+; EOSINOPHIL ABS CT 0; GIANT PLATELETS 1+; INSTRUMENT ABS NEUTROPHIL CT 20.7 K/uL; MACROCYTES 2+
[2016-09-12 19:52] LABS: BASE EXCESS -6.6 mEq/L (-3 to +3); BICARBONATE 17.9 mEq/L (22-26); CARBOXY HGB 2.3 % (0-5); METHEMOGLOBIN 2.6 % (0-1.5); PCO2 31 mm Hg (35-45); pH 7.37 (7.35-7.45)
[2016-09-12 19:53] LABS: COMMENTS - BLOOD GASES C+; DEVICE 980 VENT; FI02 50 %; MODE ACVC+; PO2 99 mm Hg (80-100); SITE LEFT RADIAL ALINE
[2016-09-12 19:54] LABS: INSPIRATION TIME 0.8 seconds; MECHANICAL RATE 18 resp/min; PEEP 5 CM/H20; TIDAL VOLUME 500 ML; TOTAL RESP RATE 29 resp/min
[2016-09-13] VITALS (8 sets, daily range): BP systolic 126–141; BP diastolic 75–88
[2016-09-13 00:13] LABS: POINT-OF-CARE USER ID AGYTJR
[2016-09-13 06:17] LABS: POINT-OF-CARE USER ID AGYTJR
[2016-09-13 06:32] LABS: MEAN PLAT.VOLUME 12.4 uM^3 (9.0-12.4); PLATELET COUNT 178 K/uL (156-360)
[2016-09-13 06:53] LABS: ANION GAP 14 MEQ/L (2-14); CHLORIDE 109 MEQ/L (99-109); GFR ESTIMATE (CALCULATED) 15 mL/min/; GLUCOSE 227 mg/dL (70-99); MAGNESIUM 2.5 mg/dl (1.3-2.7); SAMPLE HEMOLYSIS CHECK 0; SAMPLE ICTERIC CHECK 1; SAMPLE LIPEMIA CHECK 0; SODIUM 141 MEQ/L (136-147); UREA NITROGEN (BUN) 65 mg/dL (9-23)
[2016-09-13 06:56] LABS: HEMATOCRIT 23.8 % (38.0-50.0); MCH 35.4 PG (29.0-34.0); MCHC 33.2 G/DL (30.0-36.0); MCV 106.7 FL (86-99); NRBC (%) 2.1 /100 WBC (0-0); POTASSIUM 4.2 MEQ/L (3.7-5.4); RBC DIS.WIDTH-CV 16.4 % (11.8-14.6); RBC DIS.WIDTH-SD 60.8 % (39-53); RED BLOOD COUNT 2.23 M/uL (4.00-5.50); WHITE BLOOD COUNT 32.9 K/uL (4.1-10.2)
[2016-09-13 07:32] LABS: ABS NEUTROPHIL COUNT 24.6; BAND NEUTROPHILS 11.3 % (0-8.0); EOSINOPHIL ABS CT 0; INSTRUMENT ABS NEUTROPHIL CT 19.9 K/uL; LYMPHOCYTES 0.9 % (15.0-45.0); METAMYELOCYTES 10.4 %; MYELOCYTES 11.3 %; NUCLEATED RBC'S 0.9
[2016-09-13 07:35] LABS: SEG.NEUTROPHILS 63.5 % (46.0-76.0)
[2016-09-13 11:36] LABS: POINT-OF-CARE METER ID UU14162636
[2016-09-13 15:13] LABS: INTER. NORMALIZED RATIO 1.1; PROTHROMBIN TIME 11.7 (9.2-11.2); PTT 28.1 (25-32)
[2016-09-13 16:13] LABS: VANCOMYCIN, TROUGH 38.3 MCG/ML (10-20)
[2016-09-13 17:40] LABS: POINT-OF-CARE METER ID UU13113731
[2016-09-14] VITALS (8 sets, daily range): BP systolic 125–146; BP diastolic 75–87
[2016-09-14 00:28] LABS: POINT-OF-CARE METER ID UU14162636; POINT-OF-CARE USER ID AGYTJR
[2016-09-14 05:00] LABS: POINT-OF-CARE METER ID UU14174217
[2016-09-14 05:42] LABS: MCH 34.6 PG (29.0-34.0); MCHC 33.6 G/DL (30.0-36.0); MCV 102.8 FL (86-99); MEAN PLAT.VOLUME 12.9 uM^3 (9.0-12.4); NRBC (%) 1.1 /100 WBC (0-0); PLATELET COUNT 186 K/uL (156-360); RBC DIS.WIDTH-CV 16.3 % (11.8-14.6); RBC DIS.WIDTH-SD 58.1 % (39-53); RED BLOOD COUNT 2.14 M/uL (4.00-5.50); WHITE BLOOD COUNT 23.1 K/uL (4.1-10.2)
[2016-09-14 05:55] LABS: CHLORIDE 114 mEq/L (99-109); POTASSIUM 3.8 mEq/L (3.7-5.4); SODIUM 146 mEq/L (136-147)
[2016-09-14 05:57] LABS: GLUCOSE 195 mg/dL (70-99)
[2016-09-14 05:58] LABS: MAGNESIUM 2.2 mg/dL (1.3-2.7)
[2016-09-14 05:59] LABS: ANION GAP 17 MEQ/L (2-14)
[2016-09-14 06:01] LABS: GFR ESTIMATE (CALCULATED) 13 mL/min/
[2016-09-14 06:02] LABS: UREA NITROGEN (BUN) 81 mg/dL (9-23)
[2016-09-14 07:11] LABS: ABS NEUTROPHIL COUNT 18.7; BAND NEUTROPHILS 5.2 % (0-8.0); EOSINOPHIL ABS CT 0.2; EOSINOPHILS 0.9 % (0-5.0); INSTRUMENT ABS NEUTROPHIL CT 16.8 K/uL; LYMPHOCYTES 4.3 % (15.0-45.0); METAMYELOCYTES 9.6 %; MYELOCYTES 1.7 %; SEG.NEUTROPHILS 75.7 % (46.0-76.0)
[2016-09-14 07:24] LABS: SAMPLE HEMOLYSIS CHECK 0; SAMPLE ICTERIC CHECK 1; SAMPLE LIPEMIA CHECK 0; VANCOMYCIN, TROUGH 32.3 MCG/ML (10-20)
[2016-09-14 11:38] LABS: POINT-OF-CARE METER ID UU14174217
[2016-09-14 13:04] LABS: BASE EXCESS -7.3 mEq/L (-3 to +3); BICARBONATE 16.5 mEq/L (22-26); CARBOXY HGB 3.5 % (0-5); METHEMOGLOBIN 1.4 % (0-1.5); PCO2 26 mm Hg (35-45); PO2 89 mm Hg (80-100); SITE ALINE; pH 7.41 (7.35-7.45)
[2016-09-14 13:05] LABS: COMMENTS - BLOOD GASES C+; DEVICE 980; FI02 35 %; MECHANICAL RATE 18 resp/min; MODE AC/VC+; PEEP 5 CM/H20; TIDAL VOLUME 500 ML; TOTAL RESP RATE 28 resp/min
[2016-09-14 13:24] LABS: DIRECT BILIRUBIN 2.2 mg/dL (0.0-0.3)
[2016-09-14 13:25] LABS: CREATINE KINASE 13 IU/L (1-294); TOTAL CK 13 IU/L (1-294)
[2016-09-14 13:32] LABS: ALKALINE PHOSPHATASE 266 IU/L (3-129); TOTAL BILIRUBIN 3.2 mg/dL (0.0-1.0)
[2016-09-14 13:33] LABS: CK-MB < 0.4 ng/mL (0.0-4.9)
[2016-09-15] VITALS (10 sets, daily range): BP systolic 112–137; BP diastolic 67–84
[2016-09-15 00:13] LABS: POINT-OF-CARE METER ID UU14174217
[2016-09-15 06:30] LABS: HEMATOCRIT 21.3 % (38.0-50.0); MCH 36.3 PG (29.0-34.0); MCHC 34.7 G/DL (30.0-36.0); MCV 104.4 FL (86-99); MEAN PLAT.VOLUME 13.1 uM^3 (9.0-12.4); NRBC (%) 0.3 /100 WBC (0-0); PLATELET COUNT 231 K/uL (156-360); RBC DIS.WIDTH-CV 16.3 % (11.8-14.6); RBC DIS.WIDTH-SD 59.9 % (39-53); RED BLOOD COUNT 2.04 M/uL (4.00-5.50); WHITE BLOOD COUNT 21.5 K/uL (4.1-10.2)
[2016-09-15 08:13] LABS: ANION GAP 16 MEQ/L (2-14); CHLORIDE 115 MEQ/L (99-109); GFR ESTIMATE (CALCULATED) 14 mL/min/; GLUCOSE 168 mg/dL (70-99); MAGNESIUM 2.4 mg/dl (1.3-2.7); POTASSIUM 3.8 MEQ/L (3.7-5.4); SAMPLE HEMOLYSIS CHECK 0; SAMPLE ICTERIC CHECK 1; SAMPLE LIPEMIA CHECK 0; SODIUM 147 MEQ/L (136-147); UREA NITROGEN (BUN) 93 mg/dL (9-23); VANCOMYCIN, TROUGH 21.8 MCG/ML (10-20)
[2016-09-15 08:59] LABS: EOSINOPHIL (%) 1.1 % (0-5); EOSINOPHIL COUNT 0.2 K/uL (0-0.3); IMMATURE GRANULOCYTE (%) 4.9 % (0.0-0.7); IMMATURE GRANULOCYTE COUNT 1.1 K/uL; INSTRUMENT ABS NEUTROPHIL CT 18.6 K/uL; LYMPHOCYTE COUNT 0.6 K/uL (1.0-2.8); MONOCYTE (%) 4.3 % (3-12); MONOCYTE COUNT 0.9 K/uL (0-0.8); NEUTROPHIL (%) 86.6 % (45-76); NEUTROPHIL COUNT 18.6 K/uL (1.8-6.4)
[2016-09-15 09:27] LABS: LIPASE 96 U/L (1.0-51.0)
[2016-09-15 09:28] LABS: AMYLASE 11 IU/L (1-118)
[2016-09-16] VITALS (16 sets, daily range): BP systolic 119–152; BP diastolic 71–90
[2016-09-16 00:45] LABS: POINT-OF-CARE USER ID AGYTJR
[2016-09-16 05:20] LABS: POINT-OF-CARE METER ID UU14174217; POINT-OF-CARE USER ID AGYTJR
[2016-09-16 06:29] LABS: ANION GAP 17 MEQ/L (2-14); CHLORIDE 117 MEQ/L (99-109); GFR ESTIMATE (CALCULATED) 15 mL/min/; GLUCOSE 162 mg/dL (70-99); MAGNESIUM 2.3 mg/dl (1.3-2.7); POTASSIUM 3.8 MEQ/L (3.7-5.4); SAMPLE HEMOLYSIS CHECK 0; SAMPLE ICTERIC CHECK 0; SAMPLE LIPEMIA CHECK 0; SODIUM 151 MEQ/L (136-147); VANCOMYCIN, TROUGH 16.6 MCG/ML (10-20)
[2016-09-16 06:32] LABS: UREA NITROGEN (BUN) 101 mg/dL (9-23)
[2016-09-16 06:47] LABS: HEMATOCRIT 21.7 % (38.0-50.0); MCHC 32.7 G/DL (30.0-36.0); MCV 103.8 FL (86-99); MEAN PLAT.VOLUME 12.9 uM^3 (9.0-12.4); NRBC (%) 0.2 /100 WBC (0-0); RBC DIS.WIDTH-CV 17.1 % (11.8-14.6); RBC DIS.WIDTH-SD 60.5 % (39-53); RED BLOOD COUNT 2.09 M/uL (4.00-5.50); WHITE BLOOD COUNT 24.4 K/uL (4.1-10.2)
[2016-09-16 06:57] LABS: PLATELET COUNT 354 K/uL (156-360)
[2016-09-16 07:10] LABS: DIRECT BILIRUBIN 2.1 mg/dL (0.0-0.3); TOTAL BILIRUBIN 3.1 MG/DL (0.0-1.0)
[2016-09-16 07:11] LABS: ALKALINE PHOSPHATASE 176 IU/L (3-129)
[2016-09-16 07:25] LABS: BASOPHIL COUNT 0.1 K/uL (0-0.1); EOSINOPHIL COUNT 0.2 K/uL (0-0.3); IMMATURE GRANULOCYTE (%) 2.6 % (0.0-0.7); IMMATURE GRANULOCYTE COUNT 0.6 K/uL; INSTRUMENT ABS NEUTROPHIL CT 21.6 K/uL; LYMPHOCYTE COUNT 0.9 K/uL (1.0-2.8); MONOCYTE (%) 3.9 % (3-12); NEUTROPHIL (%) 88.6 % (45-76); NEUTROPHIL COUNT 21.6 K/uL (1.8-6.4)
[2016-09-16 11:24] LABS: POINT-OF-CARE METER ID UU14174217
[2016-09-16 18:03] LABS: POINT-OF-CARE METER ID UU13113731
[2016-09-16 18:05] LABS: HEMATOCRIT 24.3 % (38.0-50.0); MCH 33.3 PG (29.0-34.0); MCHC 32.9 G/DL (30.0-36.0); MCV 101.3 FL (86-99); MEAN PLAT.VOLUME 12.6 uM^3 (9.0-12.4); NRBC (%) 0.2 /100 WBC (0-0); PLATELET COUNT 417 K/uL (156-360); RBC DIS.WIDTH-CV 16.9 % (11.8-14.6); RBC DIS.WIDTH-SD 60.2 % (39-53); WHITE BLOOD COUNT 23.9 K/uL (4.1-10.2)
[2016-09-16 20:01] LABS: ABS NEUTROPHIL COUNT 22.6; BAND NEUTROPHILS 5.4 % (0-8.0); EOSINOPHIL ABS CT 0.4; EOSINOPHILS 1.8 % (0-5.0); INSTRUMENT ABS NEUTROPHIL CT 21.2 K/uL; LYMPHOCYTES 2.7 % (15.0-45.0); SEG.NEUTROPHILS 89.2 % (46.0-76.0)
[2016-09-16 21:40] LABS: CHLORIDE 117 mEq/L (99-109); POTASSIUM 3.3 mEq/L (3.7-5.4); SODIUM 150 mEq/L (136-147)
[2016-09-16 21:42] LABS: GLUCOSE 186 mg/dL (70-99)
[2016-09-16 21:43] LABS: ANION GAP 15 MEQ/L (2-14)
[2016-09-16 21:46] LABS: GFR ESTIMATE (CALCULATED) 18 mL/min/
[2016-09-16 21:47] LABS: UREA NITROGEN (BUN) 100 mg/dL (9-23)
[2016-09-17] VITALS (24 sets, daily range): BP systolic 110–141; BP diastolic 72–88
[2016-09-17 05:51] LABS: HEMATOCRIT 24.2 % (38.0-50.0); MCH 33.8 PG (29.0-34.0); MCHC 32.6 G/DL (30.0-36.0); MCV 103.4 FL (86-99); MEAN PLAT.VOLUME 12.9 uM^3 (9.0-12.4); NRBC (%) 0.2 /100 WBC (0-0); PLATELET COUNT 480 K/uL (156-360); RBC DIS.WIDTH-SD 65.6 % (39-53); RED BLOOD COUNT 2.34 M/uL (4.00-5.50); WHITE BLOOD COUNT 25.9 K/uL (4.1-10.2)
[2016-09-17 06:14] LABS: BASOPHIL COUNT 0.1 K/uL (0-0.1); EOSINOPHIL (%) 0.9 % (0-5); EOSINOPHIL COUNT 0.2 K/uL (0-0.3); HEMATOLOGY COMMENT 1 SMEAR COMPATIBLE; IMMATURE GRANULOCYTE (%) 1.5 % (0.0-0.7); IMMATURE GRANULOCYTE COUNT 0.4 K/uL; INSTRUMENT ABS NEUTROPHIL CT 23.2 K/uL; MONOCYTE (%) 4.1 % (3-12); MONOCYTE COUNT 1.1 K/uL (0-0.8); NEUTROPHIL (%) 89.5 % (45-76); NEUTROPHIL COUNT 23.2 K/uL (1.8-6.4)
[2016-09-17 06:16] LABS: ANION GAP 16 MEQ/L (2-14); CHLORIDE 116 MEQ/L (99-109); MAGNESIUM 2.3 mg/dl (1.3-2.7); SAMPLE HEMOLYSIS CHECK 1; SAMPLE ICTERIC CHECK 0; SAMPLE LIPEMIA CHECK 0; SODIUM 151 MEQ/L (136-147); TOTAL BILIRUBIN 3.5 MG/DL (0.0-1.0)
[2016-09-17 06:19] LABS: POTASSIUM 4.3 MEQ/L (3.7-5.4)
[2016-09-17 06:25] LABS: ALKALINE PHOSPHATASE 199 IU/L (3-129); GFR ESTIMATE (CALCULATED) 20 mL/min/; GLUCOSE 163 mg/dL (70-99); MAGNESIUM 2.2 mg/dl (1.3-2.7); PREALBUMIN 6.8 mg/dL (10-40); VANCOMYCIN, TROUGH 19.6 MCG/ML (10-20)
[2016-09-17 06:29] LABS: UREA NITROGEN (BUN) 101 mg/dL (9-23)
[2016-09-17 13:37] LABS: POINT-OF-CARE METER ID UU14162636
[2016-09-18] VITALS (11 sets, daily range): BP systolic 98–140; BP diastolic 78–86
[2016-09-18 00:24] LABS: POINT-OF-CARE METER ID UU13113803
[2016-09-18 05:58] LABS: HEMATOCRIT 25.3 % (38.0-50.0); MCH 33.6 PG (29.0-34.0); MCHC 32.4 G/DL (30.0-36.0); MCV 103.7 FL (86-99); NRBC (%) 0.2 /100 WBC (0-0); RBC DIS.WIDTH-CV 17.8 % (11.8-14.6); RBC DIS.WIDTH-SD 65.2 % (39-53); RED BLOOD COUNT 2.44 M/uL (4.00-5.50); WHITE BLOOD COUNT 24.3 K/uL (4.1-10.2)
[2016-09-18 06:16] LABS: BASOPHIL COUNT 0.1 K/uL (0-0.1); EOSINOPHIL (%) 1.1 % (0-5); EOSINOPHIL COUNT 0.3 K/uL (0-0.3); IMMATURE GRANULOCYTE COUNT 0.3 K/uL; INSTRUMENT ABS NEUTROPHIL CT 21.8 K/uL; MONOCYTE (%) 3.6 % (3-12); MONOCYTE COUNT 0.9 K/uL (0-0.8); NEUTROPHIL (%) 89.8 % (45-76); NEUTROPHIL COUNT 21.8 K/uL (1.8-6.4); PLAT.SUFFICIENCY INCREASED; PLATELET CLUMPS PRESENT - PLATELET COUNT APPEARS INCREASED
[2016-09-18 08:01] LABS: ANION GAP 12 MEQ/L (2-14); CHLORIDE 113 MEQ/L (99-109); GFR ESTIMATE (CALCULATED) 25 mL/min/; GLUCOSE 170 mg/dL (70-99); MAGNESIUM 2.1 mg/dl (1.3-2.7); POTASSIUM 3.6 MEQ/L (3.7-5.4); SAMPLE HEMOLYSIS CHECK 0; SAMPLE ICTERIC CHECK 1; SAMPLE LIPEMIA CHECK 0; SODIUM 148 MEQ/L (136-147); TRIGLYCERIDES 418 MG/DL (Normal: <150); UREA NITROGEN (BUN) 95 mg/dL (9-23); VANCOMYCIN, TROUGH 14.6 MCG/ML (10-20)
[2016-09-18 11:11] LABS: POINT-OF-CARE METER ID UU13113731
[2016-09-18 11:51] LABS: POINT-OF-CARE METER ID UU13113803
== END 2016-09-18 12:52 | disposition short-term general hospital (02) | DRG 438 ==
LOC: EME 09:11 → EDOF 13:00 → 4WEST 13:00 → 5EAST 13:00 → 4WEST 09-06 15:40 → 5EAST 09-06 15:45 → 4WEST 09-18 12:52
PROVIDERS: Emergency Medicine; Family Medicine; Hospitalist; Internal Medicine; Internal Medicine Critical Care Medicine; Internal Medicine Nephrology; Internal Medicine Pulmonary Disease; Physician Assistant; Psychiatry & Neurology Neurology; Specialist
DX: K85.20 Alcohol induced acute pancreatitis without necrosis or infection (principal); R57.1 Hypovolemic shock; E43 Unspecified severe protein-calorie malnutrition; J96.91 Respiratory failure, unspecified with hypoxia; F10.231 Alcohol dependence with withdrawal delirium; E87.4 Mixed disorder of acid-base balance; J90 Pleural effusion, not elsewhere classified; N17.9 Acute kidney failure, unspecified; K56.7 Ileus, unspecified; R34 Anuria and oliguria; E83.42 Hypomagnesemia; E83.51 Hypocalcemia; I95.9 Hypotension, unspecified; K76.0 Fatty (change of) liver, not elsewhere classified; E78.5 Hyperlipidemia, unspecified; F32.9 Major depressive disorder, single episode, unspecified; F10.20 Alcohol dependence, uncomplicated; F43.20 Adjustment disorder, unspecified; R10.9 Unspecified abdominal pain; K70.10 Alcoholic hepatitis without ascites; R00.0 Tachycardia, unspecified; E78.1 Pure hyperglyceridemia; D64.9 Anemia, unspecified; E03.9 Hypothyroidism, unspecified; F43.23 Adjustment disorder with mixed anxiety and depressed mood; F41.9 Anxiety disorder, unspecified; R45.1 Restlessness and agitation; Z68.33 Body mass index [BMI] 33.0-33.9, adult; R74.8 Abnormal levels of other serum enzymes; K72.90 Hepatic failure, unspecified without coma; J98.11 Atelectasis; D72.829 Elevated white blood cell count, unspecified; Z87.891 Personal history of nicotine dependence
CPT/HCPCS: 36600; 36620; 70450; 71010; 74000; 74176; 74177; 80048; 80048 91; 80053; 80061; 80069; 80074; 80076; 80202; 81003; 82140; 82150; 82150 91; 82248; 82330; 82550; 82553; 82570; 82728; 82803; 82948; 82977; 83540; 83605; 83690; 83735; 84100; 84134; 84156; 84300; 84439; 84443; 84450; 84460; 84478; 84484; 84630 90; 85025; 85025 91; 85027; 85610; 85730; 86038; 86140; 86430; 86900; 86901; 86920; 87040; 87070; 87205; 87493; 87641; 93005; 93931; 93971; 94002; 94003; 99281; 99285; C1788; C9113; J0610; J0636; J1170; J1644; J1815; J2060; J2185; J2250; J2270; J2405; J2543; J2704; J2765; J3010; J3370; J3411; J3475; J3480; J7030; J7040; J7050; J7070; J7120; P9016; P9045; P9047; S0028